=== PATIENT | male | born 1950 | race Caucasian/White ===

== ENCOUNTER 2021-08-22 11:20 | Outpatient (CLI) | payer SELFPAY ==
[2021-08-22 12:06] LABS: Alanine Aminotransferase 14 U/L (0-41); Albumin Level 4.2 g/dL (3.5-5.2); Alkaline Phosphatase 79 IU/L (40-130); Anion Gap 18.4 (5-19); Aspartate Amino Transferase 12 U/L (0-40); Blood Urea Nitrogen 11 mg/dL (8-23); Calcium 8.8 mg/dL (8.5-10.5); Carbon Dioxide 22 mmol/L (22-29); Chloride 99 mmol/L (98-107); Chol HDL Ratio 3.52 mg/dL (1.0-5.00); Cholesterol 169 mg/dL (0-200); Globulin 2.1 g/dL (1.3-4.6); Glomerular Filtration Rate 112.1 mL/min (90-130); Glucose 106 mg/dL (65-115); HDL Cholesterol 48 mg/dL (60-100); LDL Cholesterol Calculated 104 mg/dL (50-129); LDL HDL Ratio 2.17 RATIO (0.00-3.22); Osmolality Calculated 280 mOsm/kg (285-295); Potassium 4.4 mmol/L (3.5-5.1); Sodium 135 mmol/L (136-145); Total Bilirubin 0.8 mg/dL (0.15-1.2); Total Protein 6.3 g/dL (6.6-8.7); Triglycerides 83 mg/dL (0-150)
== END 2021-08-22 11:21 | disposition home or self-care (01) ==
LOC: LAB 11:29
PROVIDERS: Visit Provider Internal Medicine Interventional Cardiology
DX: E78.2 Mixed hyperlipidemia (principal); I10 Essential (primary) hypertension
CPT/HCPCS: 80053; 80061

== ENCOUNTER → 2024-09-09 08:57 | Outpatient (BNVA) | payer MEDICARE, OTHER, SELFPAY | PROVIDERS: Visit Provider Student in an Organized Health Care Education/Training Program | DX: R03.0 Elevated blood-pressure reading, without diagnosis of hypertension (principal); Z12.11 Encounter for screening for malignant neoplasm of colon; D37.4 Neoplasm of uncertain behavior of colon | CPT/HCPCS: 99204 ==

== ENCOUNTER 2024-09-29 05:47 | Day surgery (SDC) | payer MEDICARE, OTHER, SELFPAY ==
[2024-09-29] VITALS (11 sets, daily range): BP systolic 142–180; BP diastolic 71–98; PULSE 58–67; RESP 16–20; TEMP 36.2–36.5; O2SAT 95–98; BMI 29.2
--- NOTE | 2024-09-29 06:21 | P.ANESASSM_ITS ---
Pre-Anesthetic Assessment Height/Weight: Height 5 ft 10 in Weight 204 lb Temp Pulse Resp BP Pulse Ox O2 Del Method 97.7 F 67 18 180/95 98 Room Air 09/29/24 06:03 09/29/24 06:03 09/29/24 06:03 09/29/24 06:03 09/29/24 06:03 09/29/24 06:03 Preop Diagnosis: Lipoma Operation Date: 09/29/24 07:00 Proposed Procedures p excision of [place] back [address], D17.1(Not Applicable) - Francisco J Stover MD Was Beta Geeta taken within 24 hours: N/A Was Clonidine taken within 24 hours: N/A Last intake: Intake Last Liquid Date 09/28/24 Last Liquid Time 18:00 Last Solid Date 09/28/24 Last Solid Time 18:00 Social No alcohol and No tobacco Exam alert, oriented x 3, clear to auscultation bilaterally and regular rate & rhythm Airway Submandibular: within normal limits Cervical ROM: within normal limits Mallampati: Class II Dentition: full Comments: Comments: Poor dentition, denies any loose Anesthetic Plan ASA status: 3 Anesthesia: General Other: No prior issues with anesthesia NPO since yesterday History of hypertension on carvedilol and lisinopril. Preop BP 180/95 Denies any pulmonary issues METs greater than 4 BMP pending Plan for general anesthesia Medications/Allergies Home Medications Medication Instructions Recorded Confirmed Last Taken Type carvedilol 6.25 mg tablet 3.25 mg PO BID 09/09/24 09/29/24 09/29/24 History lisinopril 40 mg tablet 40 mg PO ONCE 09/09/24 09/29/24 09/28/24 History Allergies Allergy/AdvReac Type Severity Reaction Status Date / Time gluten Allergy bloating, Verified 09/29/24 06:01 itching, dizzy dairy Allergy bloating, Uncoded 09/29/24 06:01 itching, dizy [facility] Anesthesia Family History (Updated 09/09/24 @ 09:09 by MICHELLE Green) Father Heart attack Mother Cancer pancreatic Social History (Updated 09/09/24 @ 09:09 by MICHELLE Green) Smoking and tobacco/nicotine status: never used tobacco/nicotine Alcohol intake: never Data Anesthesia 09/29/24 06:25 Cardiac Studies: 2 No Data to Display
[2024-09-29] MEDS: sodium chloride 0.9% 1,000 ML 30 ML IV (06:23)
[2024-09-29 06:55] LABS: Alanine Aminotransferase 12 U/L (0-41); Albumin Level 4.2 g/dL (3.5-5.2); Alkaline Phosphatase 103 U/L (40-130); Anion Gap 16.1 (5-19); Aspartate Amino Transferase 12 U/L (0-40); Blood Urea Nitrogen 13 mg/dL (8-23); Calcium 8.9 mg/dL (8.5-10.5); Carbon Dioxide 24 mmol/L (22-29); Chloride 100 mmol/L (98-107); Creatinine Clr Calc Pharmacy 96.8075; Globulin 2.2 g/dL (1.3-4.6); Glucose 158 mg/dL (65-115); Osmolality Calculated 285 mOsm/kg (285-295); Potassium 4.1 mmol/L (3.5-5.1); Sodium 136 mmol/L (136-145); Total Bilirubin 0.6 mg/dL (0.15-1.2); Total Protein 6.4 g/dL (6.6-8.7)
--- NOTE | 2024-09-29 07:03 | W.PM.OPSUD ---
Surgery/Procedure H&P Update DATE OF PROCEDURE: September 29, 2024 DATE H&P PERFORMED: 09/09/23 H&P UPDATE INFORMATION: I have reviewed H&P completed within last 30 days, I have examined patient prior to procedure and No changes to prior documentation PREOP DIAGNOSIS: Lipoma PLANNED PROCEDURE: Operation Date: 09/29/24 07:00 Proposed Procedures p excision of [place] on back [address], D17.1(Not Applicable) - Francisco J Stover MD
[2024-09-29] MEDS: ceFAZolin 2,000 mg SDV 2000 MG IVP (07:04)
[2024-09-29] MEDS: neomycin-poly-bacitracin oint 28 gm 1 APPLIC TOPICAL (07:57)
[2024-09-29] MEDS: lidocaine-epi 1% PF 1:200,000 30 mL SDV INJECTION (07:58)
--- NOTE | 2024-09-29 08:06 | PM.OP ---
Operative Report Date of procedure: September 29, 2024 Pre-op diagnosis: Lipoma Post-op diagnosis: same Post-op diagnosis: 5 x 4 cm lipoma Post-op findings: 5 x 4 cm lipoma Procedure done: Dorsal lipoma excision Implants: N/A Specimens removed/disposition: Lipoma sent to pathology Pathology: Lipoma Surgeon: Francisco J Stover MD Enterprise Software Developer: N/A Anesthesia: General Estimated blood loss (mL): 5 Complications: N/A Findings: 5 x 4 cm lipoma. Excised the capsule. Closed wound in multiple layers. Condition: stable Disposition: same day Brief History: 73-year-old male who presented with a soft tissue mass most consistent with a lipoma of the dorsum. Discussed risk and benefits and patient agreed to proceed with soft tissue mass excision. Procedure: Patient was brought into the operative room. Preoperative Ancef was administered. SCDs were working. General anesthesia was induced on the stretcher. Gel rolls were placed at the chest and hip level on the operating room table. Once the endotracheal tube was secured, the patient was then transferred to the operating room table prone. Arms were properly padded and secured. The dorsum was prepped and draped in the usual sterile fashion. A 5 cm incision was carried out over the soft tissue mass. Electrocautery was used to dissect out the lipoma. It was excised with the capsule intact. Specimen was passed off and sent to pathology. Adequate hemostasis was achieved using electrocautery. Lana's was closed using running 3-0 Vicryl. The deep dermal layer was closed using running 2-0 Vicryl. Epidermis was closed using interrupted vertical mattress sutures using 2-0 nylon. Triple antibiotic ointment was applied. An island dressing was also applied. The patient woke up from anesthesia without any complications
--- NOTE | 2024-09-29 09:25 | ANE.PACU2 ---
Inpatient post-anesthesia follow up: Airway intact: Yes Vital signs: Temperature 97.6 F Pulse Rate 62 Respiratory Rate 17 Blood Pressure 153/98 Pulse Oximetry 96 Oxygen Delivery Me thod Room Air Oxygen Flow Rate Fraction of Inspir ed Oxygen Hydration adequate: Yes Nausea and vomiting: No Pain level: 1 Mental status: Baseline
== END 2024-09-29 09:25 | disposition home or self-care (01) ==
PROVIDERS: Student in an Organized Health Care Education/Training Program; PCP Family Medicine; Visit Provider Student in an Organized Health Care Education/Training Program
PROC: (CPT 21933; principal; 2024-09-29 07:00)
DX: D17.1 Benign lipomatous neoplasm of skin and subcutaneous tissue of trunk (principal)
CPT/HCPCS: 21933; 80053; 88304; J0690; J1100; J2250; J2405; J2704; J2710; J3010; J3490; J7030

== ENCOUNTER → 2024-10-07 08:57 | Outpatient (BNVA) | payer MEDICARE, OTHER, SELFPAY | PROVIDERS: PCP Family Medicine; Visit Provider Student in an Organized Health Care Education/Training Program | DX: Z98.890 Other specified postprocedural states (principal) | CPT/HCPCS: 99024 ==

== ENCOUNTER → 2024-10-21 10:59 | Outpatient (BNVA) | payer MEDICARE, OTHER, SELFPAY | PROVIDERS: PCP Family Medicine; Visit Provider Student in an Organized Health Care Education/Training Program | DX: R03.0 Elevated blood-pressure reading, without diagnosis of hypertension (principal); Z98.890 Other specified postprocedural states | CPT/HCPCS: 99024 ==

== ENCOUNTER 2024-11-30 10:52 | Day surgery (SDC) | payer MEDICARE, SELFPAY ==
[2024-11-30 11:08] VITALS: BMI 28.7
[2024-11-30 11:12] VITALS: BP 152/88; PULSE 71; RESP 18; TEMP 36.5; O2SAT 96
--- NOTE | 2024-11-30 11:20 | W.PM.OPSFHP ---
Same Day Surgery H&P Indication for Procedure/HPI DATE OF PROCEDURE: November 30, 2024 CHIEF COMPLAINT/INDICATIONFOR SURGICAL PROCEDURE: screening colonoscopy PREOP DIAGNOSIS: screening colonoscopy PLANNED PROCEDURE: Operation Date: 11/30/24 12:15 Proposed Procedures p Colonoscopy 00689 G0121 Z12.11(Not Applicable) - Francisco J Stover MD Medications/Allergies* Home Medications ?Medication ?Instructions ?Recorded ?Confirmed ?Type carvedilol 6.25 mg tablet 6.25 mg PO BID 09/09/24 11/30/24 History lisinopril 40 mg tablet 40 mg PO BEDTIME 09/09/24 11/29/24 History Allergies/Adverse Reactions Allergy/AdvReac Type Severity Reaction Status Date / Time gluten Allergy bloating, Verified 11/30/24 11:05 itching, dizzy dairy Allergy bloating, Uncoded 11/30/24 11:05 itching, dizy Pertinent History/Comorbid Conditions* Family History (Updated 09/09/24 @ 09:09 by MICHELLE Green) Heart attack Father Cancer Mother pancreatic Social History Smoking and tobacco/nicotine status: never used tobacco/nicotine Alcohol intake: never Pertinent Exam Findings alert, oriented x 3, clear to auscultation bilaterally, regular rate & rhythm and procedure specific exam findings Abdomen soft, nt, ,nd Pertinent Data No family history of colon cancer. No hematochezia, no melena, no weight loss. Recommendations Surgery/Procedure today Other Plans: I have explained the risks and benefits of a screening colonoscopy and the patient agrees to proceed. Patient is average for colon cancer. Coding Level of Care Code Acute Code for [facility]
[2024-11-30] MEDS: sodium chloride 0.9% 1,000 ML 30 ML IV (11:22)
--- NOTE | 2024-11-30 11:32 | ANES.PREANE2 ---
Pre-Anesthetic Assessment Height/Weight: Height 1.78 m Weight 90.718 kg Temp Pulse Resp BP Pulse Ox O2 Del Method 97.7 F 71 18 152/88 96 Room Air 11/30/24 11:12 11/30/24 11:12 11/30/24 11:12 11/30/24 11:12 11/30/24 11:12 11/30/24 11:12 Preop Diagnosis: screening colonoscopy Operation Date: 11/30/24 12:15 Proposed Procedures p Colonoscopy 20723 G0121 Z12.11(Not Applicable) - Francisco J Stover MD Familial anesthetic complications: none Was Beta Geeta taken within 24 hours: Yes Was Clonidine taken within 24 hours: N/A Last intake: Intake Last Liquid Date 11/29/24 Last Liquid Time 22:00 Last Solid Date 11/28/24 Last Solid Time 19:00 Social No alcohol and No tobacco Exam alert, oriented x 3, clear to auscultation bilaterally and regular rate & rhythm Airway Submandibular: within normal limits Cervical ROM: within normal limits Mallampati: Class III Dentition: full History/ROS No significant history except as noted and No significant complaints Pulmonary None reported CV/HEM Hypertension None reported Hepatic None reported GI None reported Metabolic None reported Musc/skel None reported Neuropsych None reported Anesthetic Plan ASA status: 3 Anesthesia: MAC Risk of > 500 ml blood loss (7ml/kg in children): No Medications/Allergies Home Medications ?Medication ?Instructions ?Recorded ?Confirmed ?Last Taken ?Type carvedilol 6.25 mg tablet 6.25 mg PO BID 09/09/24 11/30/24 11/30/24 History lisinopril 40 mg tablet 40 mg PO BEDTIME 09/09/24 11/29/24 11/29/24 History Allergies Allergy/AdvReac Type Severity Reaction Status Date / Time gluten Allergy bloating, Verified 11/30/24 11:05 itching, dizzy dairy Allergy bloating, Uncoded 11/30/24 11:05 itching, dizy Current Medications Generic Name Dose Route Start Last Admin Trade Name Freq PRN Reason Stop Dose Admin Sodium Chloride 1,000 mls @ 30 mls/hr 11/30/24 11:15 11/30/24 11:22 Sodium Chloride 0.9% IV 30 mls/hr .Q24H JUAN Administration PFSH Anesthesia Family History Father Heart attack Mother Cancer pancreatic Social History Smoking and tobacco/nicotine status: never used tobacco/nicotine Alcohol intake: never Data Anesthesia Cardiac Studies: No Data to Display
[2024-11-30 12:35] VITALS: BP 88/52; PULSE 67; RESP 18; TEMP 36.4; O2SAT 95
[2024-11-30 12:41] VITALS: BP 99/60; PULSE 62; RESP 18; O2SAT 94
[2024-11-30 12:49] VITALS: BP 127/76; PULSE 62; RESP 18; O2SAT 95
--- NOTE | 2024-11-30 13:05 | ANE.PACU2 ---
Inpatient post-anesthesia follow up: Airway intact: Yes Vital signs: Temperature 97.6 F Pulse Rate 62 Respiratory Rate 18 Blood Pressure 127/76 Pulse Oximetry 95 Oxygen Delivery Me thod Room Air Oxygen Flow Rate Fraction of Inspir ed Oxygen Hydration adequate: Yes Nausea and vomiting: No Pain level: 1 Mental status: Baseline
== END 2024-11-30 13:05 | disposition home or self-care (01) ==
PROVIDERS: PCP Family Medicine; Visit Provider Student in an Organized Health Care Education/Training Program
PROC: 0DJD8ZZ Inspection of Lower Intestinal Tract, Via Natural or Artificial Opening Endoscopic (ICD-10-PCS; CPT 45378; principal; 2024-11-30 12:15)
DX: Z12.11 Encounter for screening for malignant neoplasm of colon (principal); D12.5 Benign neoplasm of sigmoid colon; D12.8 Benign neoplasm of rectum; I10 Essential (primary) hypertension; Z79.899 Other long term (current) drug therapy; Z80.0 Family history of malignant neoplasm of digestive organs
CPT/HCPCS: 45380; 45385; 88305; J7030

== ENCOUNTER → 2024-12-13 14:59 | Outpatient (BNVA) | payer MEDICARE, SELFPAY | PROVIDERS: PCP Family Medicine; Visit Provider Student in an Organized Health Care Education/Training Program | DX: Z09 Encounter for follow-up examination after completed treatment for conditions other than malignant neoplasm (principal) | CPT/HCPCS: 99213 ==

== ENCOUNTER → 2025-03-04 12:24 | Outpatient (BNVA) | payer MEDICARE, OTHER, SELFPAY | PROVIDERS: PCP Family Medicine; Visit Provider Nurse Practitioner | DX: M75.32 Calcific tendinitis of left shoulder (principal); Z98.890 Other specified postprocedural states; V89.2XXA Person injured in unspecified motor-vehicle accident, traffic, initial encounter | CPT/HCPCS: 73030; 99204 ==

== ENCOUNTER 2025-03-29 07:46 | Outpatient (CLI) | payer MEDICARE, OTHER, SELFPAY ==
--- NOTE | 2025-03-29 07:56 | MR_ITS ---
WS: [id number] EXAMINATION: MR shoulder LT arthrogram ORDER DATE: 03/29/2025 7:56 AM COMPARISON: LEFT HISTORY: pain in left shoulder TECHNIQUE: Axial T2 STAR, coronal proton density fat sat, sagittal T2 fat sat, sagittal proton density fat sat, axial proton density fat sat, coronal T2 fat sat, and coronal T1 performed. Arthrogram imaging FINDINGS: Advanced arthritis AC joint with mild downsloping acromion. Subacromial spurring. Prior rotator cuff repair. Fluid and edema at the AC joint. Subchondral cystic change involving the greater tuberosity. Advanced degenerative narrowing of the glenohumeral articulation. Some imaging degraded due to susceptibility artifact from rotator cuff anchors. Biceps tendon appears intact within the bicipital groove. Diffuse increased T2 signal normality involving the intra-articular biceps tendon compatible with tendinopathy. Small interstitial tears involving the rotator cuff repair involving the supraspinatus and infraspinatus distally. A few small bursal surface tears involving both the supraspinatus and infraspinatus. Tiny rim rent tear with dissecting contrast to the bursal surface involving the supraspinatus. No tendon retraction. Subscapularis tendon appears intact. Glenoid labrum appears grossly intact. Middle glenohumeral ligament appears intact. Normal teres minor. MR/MR shoulder LT wo/w con [id number] IMPRESSION:a 1. Prior rotator cuff repair. 2. Tiny interstitial tears involving the supraspinatus and infraspinatus with a distal supraspinatus insertion tear. 3. Additional tiny full-thickness tear involving the supraspinatus distally wi th dissecting contrast to the bursal surface. No tendon retraction. 4. Teres minor and subscapularis tendons appear intact. 5. Medial subluxation of the biceps tendon along the proximal bicipital groove . 6. Intra-articular biceps tendon appears intact with diffuse tendinopathy. 7. Biceps labral anchor appears intact. 8. Degenerative fraying of the glenoid labrum with no acute appearing tears.
--- NOTE | 2025-03-29 08:00 | IR_ITS ---
WS: [id number] SHOULDER ARTHROGRAM LEFT Fluoroscopic guided left shoulder arthrogram CLINICAL INFORMATION: left shoulder pain PROCEDURE: The procedure including risks, benefits and complications were discussed with the patient, who agreed to proceed. Using sterile technique, the patient was prepped and draped in the usual sterile fashion. After 1% lidocaine injection using fluoroscopic guidance, a 22-gauge spinal needle was advanced into the glenohumeral joint. Approximately 13 ml of a solution containing 15 ml normal saline, 5 ml Omnipaque 240, and 0.1 ml gadolinium was administered. No immediate complications. FLUOROSCOPY TIME: 1min [id number] # of spot films: 5 IR/IR arthrogram shoulderLT [id number] IMPRESSION: Uncomplicated fluoroscopic-guided left shoulder arthrogram. MRI to follow.
[2025-03-29] MEDS: gadobenate dimeglumine 20 mL vial 3 ML IV (10:38)
[2025-03-29] MEDS: iohexol 240 mg/mL 50 mL Btl 20 ML INTRA-ARTI (10:42)
== END 2025-03-29 07:47 | disposition home or self-care (01) ==
LOC: RAD 07:48
PROVIDERS: PCP Family Medicine; Visit Provider Nurse Practitioner
DX: M75.122 Complete rotator cuff tear or rupture of left shoulder, not specified as traumatic (principal); Z98.890 Other specified postprocedural states; M67.814 Other specified disorders of tendon, left shoulder; M75.82 Other shoulder lesions, left shoulder; S43.082A Other subluxation of left shoulder joint, initial encounter; X58.XXXA Exposure to other specified factors, initial encounter
CPT/HCPCS: 23350; 73223; 77002; J9999

== ENCOUNTER 2025-04-15 12:50 | Outpatient (CLI) | payer MEDICARE, SELFPAY | END 2025-04-15 12:51 | disposition home or self-care (01) | PROVIDERS: PCP Family Medicine; Visit Provider Nurse Practitioner | DX: M25.512 Pain in left shoulder (principal) | CPT/HCPCS: 80053; 81001; 85025 ==

== ENCOUNTER → 2025-04-26 09:10 | Outpatient (BNVA) | payer MEDICARE, SELFPAY | PROVIDERS: PCP Family Medicine; Visit Provider Family Medicine | DX: Z01.818 Encounter for other preprocedural examination (principal) | CPT/HCPCS: 93005 ==

== ENCOUNTER 2025-05-10 09:46 | Day surgery (SDC) | payer MEDICARE, OTHER, SELFPAY ==
[2025-05-10] VITALS (11 sets, daily range): BP systolic 142–167; BP diastolic 76–93; PULSE 67–77; RESP 10–18; TEMP 36.2–36.5; O2SAT 93–97; BMI 27.9
[2025-05-10] MEDS: acetaminophen 1,000 MG/100 ML PIGGYBACK 400 MG IV (10:35)
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
--- NOTE | 2025-05-10 10:37 | P.HPUD_ITS ---
Surgery/Procedure H&P Update DATE OF PROCEDURE: May 10, 2025 DATE H&P PERFORMED: 04/26/25 H&P UPDATE INFORMATION: I have reviewed H&P completed within last 30 days, I have examined patient prior to procedure, No changes to prior documentation, H&P is in [facility] EMR on date indicated and Risks and benefits of the procedure reviewed PREOP DIAGNOSIS: Left shoulder pain after trauma with history of left rotator cuff repair an PRIMARY INDICATION FOR PROCEDURE: MRI arthrogram of the patient's left shoulder was obtained at [facility] on March 29, 2025. The images were reviewed and report was dictated by Dr. Valentin Lira MD. Impression: 1. Prior rotator cuff repair. 2. Tiny interstitial tears involving the supraspinatus and infraspinatus with a distal supraspinatus insertion tear. 3. Additional tiny full-thickness tear involving the supraspinatus distally with dissecting contrast of the bursal surface. No tendon retraction. 4. Teres minor and subscapularis tendons appear intact. 5. Medial subluxation of the biceps tendon along the proximal bicipital groove. 6. Intra-articular biceps tendon appears to be intact with diffuse tendinopathy. 7. Biceps labral anchor appears intact. 8. Degenerative fraying of the glenoid labrum and no acute appearing tears. PLANNED PROCEDURE: Operation Date: 05/10/25 11:35 Proposed Procedures p LEFT Shoulder Debridement(Left) - Niurka Alexander MD s LEFT Distal Clavicle Resection(Left) - Niurka Alexander MD s POSSIBLE LEFT Rotator Cuff Repair Shoulder(Left) - Niurka Alexander MD Related Problem List Diagnoses 1. Calcific tendonitis of left shoulder: 2. Pain of left shoulder after trauma: 3. History of repair of left rotator cuff:
--- NOTE | 2025-05-10 10:44 | SUR.PREOP ---
Left interscalene block completed in OPS by Dr Pérez using 20ml 0.5% Ropivicaine and 4mg decadron. Patient tolerated well
[2025-05-10] MEDS: ceFAZolin 2,000 mg SDV 2000 MG IVP (11:05)
[2025-05-10] MEDS: ceFAZolin 1,000 mg SDV 1000 MG IRRIGATION (11:44)
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
[2025-05-10] MEDS: fentaNYL 50 mcg/mL INJ 2mL IVP (13:15)
--- NOTE | 2025-05-10 14:20 | ANE.PACU2 ---
Inpatient post-anesthesia follow up: Airway intact: Yes Vital signs: Temperature 97.5 F Pulse Rate 71 Respiratory Rate 18 Blood Pressure 158/83 Pulse Oximetry 94 Oxygen Delivery Me thod Room Air Oxygen Flow Rate Fraction of Inspir ed Oxygen Hydration adequate: Yes Nausea and vomiting: No Pain level: 1 Mental status: Baseline
== END 2025-05-10 14:20 | disposition home or self-care (01) ==
PROVIDERS: PCP Family Medicine; Visit Provider Specialist
PROC: (CPT 23412; principal; 2025-05-10 11:15)
PROC: (CPT 23120; 2025-05-10 11:15)
PROC: (CPT 23412; 2025-05-10 11:15)
DX: M75.112 Incomplete rotator cuff tear or rupture of left shoulder, not specified as traumatic (principal); M75.42 Impingement syndrome of left shoulder; M19.012 Primary osteoarthritis, left shoulder; I10 Essential (primary) hypertension
CPT/HCPCS: 23412; 23130; J0131; J0690; J1100; J1200; J2405; J2704; J2795; J3010; J3490; J7030; J9999

== ENCOUNTER → 2025-05-23 15:02 | Outpatient (BNVA) | payer MEDICARE, SELFPAY | PROVIDERS: PCP Family Medicine; Visit Provider Nurse Practitioner | DX: Z98.890 Other specified postprocedural states (principal) | CPT/HCPCS: 99024 ==

== ENCOUNTER → 2025-06-13 13:23 | Outpatient (BNVA) | payer MEDICARE, SELFPAY | PROVIDERS: PCP Family Medicine; Visit Provider Nurse Practitioner | DX: Z98.890 Other specified postprocedural states (principal); M25.512 Pain in left shoulder; V89.2XXA Person injured in unspecified motor-vehicle accident, traffic, initial encounter | CPT/HCPCS: 99024 ==

== ENCOUNTER 2025-06-26 21:15 | Emergency (ER) | payer MEDICARE, OTHER, SELFPAY ==
--- OUTSIDE RECORDS SUMMARY | 2008-12-30 19:00 | XMS_ITS | Continuity of Care Document ---
Author Organization [facility] Address [address] [place] [address] Care Team Providers Care Keypuncher Name Role Phone Moose White MD Unavailable Unavailable Procedures Procedure Date Ecg-routine 12 Lead; Intrpt & Advance Directives Directive Yes / No Effective Date File Name No Information Encounters Encounter Description Practice Location Reason(s) For Visit Diagnoses Date Provider Providers Copied on [facility]counter [facility], [address] [place] [address], [id number], [facility] No Information 9 Cindy Virk. [address] [facility], [address], [facility] [address], [place], [id number], [place]. tel:[phone] Referring Provider: Juan Alberto Kelly MD I, [address] [place] [address], [id number]. tel:[phone] Family History Family Member Type Diagnosis Age At Onset No Information Payers Payer name Insurance type Covered libertarian ID Authoriza tialyse(s) [employer] CI [id number] Social History Type Description Quantity Date Captured Comments Sex Male Smoking Status No Information Chief Complaint And Reason For Visit No Information Reason For Referral Reason For Referral No Information History Of Present Illness Encounter Date Complaint History Of Prese nt Illness No Information Functional Status Date Functional Assessmen t No Information Instructions Date Instruction Additional Infor mation No Information Assessments Type Assessment Date No Information Patient Care Teams Name Effective Dates (start - stop) Status Members No Information
--- OUTSIDE RECORDS SUMMARY | 2024-08-27 09:30 | XMS_ITS ---
Author Organization [facility] Address [address] [place] [address] Care Team Providers Care Bandoleer Packer Name Role Phone NONE, NO PCP Primary Care Provider UnavailRAFAEL Joseph Unavailable [phone] YASEMIN TRUONG Unavailable Unavailable GERMAIN HORTON Unavailable [phone] Encounters Encounter Location Date Provider Diagnosis [facility] [address] [facility] [place] [address] 08/27/2024 GERMAIN HORTON Plan Of Treatment No Information Progress Notes * JANES GARCIAODOB:1950 (74 yo M)Acc No.[id number]:08/27/2024 Progress Notes Patient: Fermin JOSEPH THAD Provider: Paul Horton MD :1950 A ge:73 Y S ex:Male Date:08/27/2024 Address:[address] [id number] Pcp:NO PCP NONE Subjective: * Chief Complaints: * * Medical History: Objective: * Vitals: Assessment: Plan: * Treatment: * Images: Billing Information: * Visit Code: * Procedure Codes: * Electronic signature of GERMAIN HORTON MD on 06/26/2025 at 09:24 PM CDT Sign off status: Pending * Provider: Paul Horton MD Date: 1 10/28/2023 Generated for Ping ashraf/Justin/Kirby on: 1 09:24 PM CDT
--- OUTSIDE RECORDS SUMMARY | 2025-06-26 21:24 | XMS_ITS | Data Portability ---
Author Organization [facility] James Joiner, [facility] Address [address] [place] [id number] Assessment No assessment recorded. Plan of Treatment Reminders Order Date Submit Date Provider Last Modified By Organization Details Last Modified Time Details Appointments None recorded. Lab None recorded. Referral None recorded. Procedures None recorded. Surgeries None recorded. Imaging None recorded. Medication Orders triamcinolo ne acetonide 0.1 % topical cream 2022 023 [id number], [address], [place], [place], [id number], 3 15:10:22 Patient TargetsNo targets recorded. Patient InstructionsNo instructions recorded. Reason for Referral None Reported. Medical Equipment None Reported. Allergies Allergen ID Allergen Name Allergen Category Reaction Reaction Severity Criticality Documentation Date Start Date Code Code System Note Provider Name and Address Organization Details Recorded Time 50395 wheat gluten extract food Not available Not available Not available 07/09/2023 17395 81 RxNorm [facility] 14:42:32 Medications Name Sig Start Date Stop Date Status Note LastModified by Organization Details LastModified Time triamcinolone acetonide 0.1 % topical cream APPLY A THIN LAYER TO THE AFFECTED AREA(S) BY TOPICAL ROUTE 2 TIMES PER DAY 2022 active Not Available Not Available Not Avai lable Vitals Date Recorded Body height Body mass index (BMI) Body weight Oxygen saturation Oxygen saturation in Arterial blood by Pulse oximetry Heart rate Body temperature Systolic And Diastolic Provider Name and Address Organization Details Last Updated DateTime 3 177.8 cm 29.8 kg/m2 87249.2 1 g 97 % 97 % 69 /min 97.8 [degF] 160/71 mm[Hg] SALEEM LLOYD [facility], LGeorgi 3 14:41:59 Social History None recorded. Functional Status None recorded. Mental Status None recorded. Family History Nothing Reported. Medical History No medical history recorded. Past Encounters Encounter ID Performer Location Encounter Start Date Encounter Closed Date Diagnosis/Indication Diagnosis SNOMED-CT Code Diagnosis ICD10 Code Diagnosis IMO Codes Diagnosis Note [id number] SHELLEY BADILLO BANNER ([facility]) [address] [place] [address] 07/09/2023 13:53:44 07/09/2023 16:37:51 Bruising symptom 928259712 R23.[address] Archibald. Appears to be a bruise. No evidence of steel hanger y issues. Patient will continue to monitor and return to walk in for a follow up in 2 weeks. Patient denies pain but reports some itching. If pain develops or bruising appears to spread, should be re-evaluat ed sooner. Patient is agreeable to plan of care. Itching of skin 90514665 0 L29.9 Can use triamcinol one BID for itching. Health Concerns Section Related Observation LastModified by Organization Detai ls LastModified Time None Recorded Concern Status LastModified by Organization Details LastModified Time None Recorded Advance Directives Directive None Recorded Payers Insurance Date Sequence Insurance Name Policy Number Policy Rivera Covered Member ID Rivera Member ID Guarantor Name 07/09/2023 1 MEDICARE [place]: [facility] Danna Mcclelland [id number] Danna Vines 07/16/2023 2 [employer] (MEDICARE SUPPLEMENT) Danna Mcclelland [id number] Danna Vines 07/09/2023 1 [place]: S Danna Vines [id number] Danna Vines 07/15/2023 [facility] MEDIC[facility]-[place] - PART A - [facility] (MEDICARE) Danna Vines [id number] Danna Vines Notes Date Note Type Note Provider Name and Address Organization Details Recorded Time 07/09/2023 text/html General Rash/Ski n LesionReported by PatientHPIFor quality, patient reportsitchybut reportsnot painful(bruising). For location, patient reportslegs. For severity, patient reportsmoderate. For duration, patient reportshas noted for <1 week. For onset/timing, patient reportsabrupt onset. For associated symptoms, patient reportsno fever,no cold symptoms,no nausea,no vomiting, andno diarrhea.ROS as noted in the HPI Patient is a 72 year old male who presents to the walk in clinic today for skin problems. Patient presents to the clinic today with a complaint of a bruise to posterior right thigh, reports mild itching. Denies pain or fever. Noticed the bruise yesterday. Denies any injury. BROCK BADILLO-Yony [address] [place], [address], [facility] 07/10/2023 15:54:45
--- OUTSIDE RECORDS SUMMARY | 2025-06-26 21:24 | XMS_ITS | Patient Health Record ---
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 Name Role Phone NONE, NO PCP Primary Care Provider UnavailRAFAEL Joseph Unavailable [phone] YASEMIN TRUONG Unavailable Unavailable GERMAIN DELA CRUZ Unavailable [phone] Allergies No Known Allergies Reason For Referral No Information Medications Medication SIG (Take, Route, Frequency, Duration) Notes Start Date End Date Status Rosuvastatin Calcium 10 MG take 1 tablet by mouth every day Orally Once a day; Duration: 90 days Active hydroCHLOROthiazide 25 MG take 1 tablet by mouth every day in the morning Orally Once a day; Duration: 90 days Active Lisinopril 40 MG 1 tablet Orally Once a day; Duration: 30 days Active Carvedilol 6.25 MG 1 tablet Orally Twic e a day; Duration: 30 days Active amLODIPine Besylate 5 MG 1 tablet Orally Once a day; Duration: 90 days 11/14/2020 Not-Taking Social History Tobacco Use: Social History Observation Description Date Details (start date - stop date) Never Smoker NA - NA TOBACCO USE- Question Answer Notes Are you a: never Tobacco user Section Notes: No ETOH or tobacco. 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) Active confirmed Problem Essential hypertension (60438199) Benign essential HTN (I10) Active confirmed Problem Bilateral atherosclerosis of arteries of lower limbs (disorder) (50195471351313557 ) Atherosclerosis of artery of both lower extremities (I70.203) Active confirmed Problem Abdominal aortic aneurysm without rupture (disorder) (39015162) Abdominal aortic aneurysm, without rupture, unspecified (I71.40) Active confirmed Encounters Encounter Location Date Provider Diagnosis [facility] [address] [place] [address] 08/04/2024 RAFAEL WELCH Benign essential HTN I10 [facility] [address] [place] [address] 08/04/2024 RAFAEL WELCH Assessments Encounter Date Diagnosis (ICD Code) Assessment Notes Treatment Notes Treatment Clinical Notes Section Notes 08/04/2024 Benign essential HTN (ICD-10 - I10) Plan Of Treatment Pending Test Test Name Order Date COMPREHENSIVE METABOLIC PANEL 05/31/2021 LIPID PANEL WITH REFLEX TO DIRECT LDL Future Test Test Name Order Date COMPREHENSIVE METABOLIC PANEL 08/12/2023 LIPID PANEL WITH REFLEX TO DIRECT LDL CBC (INCLUDES DIFF/PLT) 08/12/2023 ABD AORTA ANEURYSM SCREEN-MEDICARE Insurance Providers Payer Name Payer Address Payer Phone Subscriber Number Group Number Insured Name Patient Relationship to Insured Coverage Start Date Coverage End Date MEDICARE J6 [address] [place] [phone] [id number] [employer] BETTENCOURT Self - patient is the insured [employer] [facility] [address] [address] [place] [address] [id number] SHARON Bhakta JANESKary Self - patient is the insured Medical (General) History Medical History History ICD Code HTN 03/2013 labs: TC 146, HCL 57, TRG 53, LDL 78 echocardiogram March 2020-ejection fracti on 55-60% Lower extremity venous Doppl ers August 2020-there is right and left greater saphenous vein insufficiency. Right proximal medial tributary insufficiency Lower extremity arterial Dop pler August 2020-right ankle-brachial index 0.98, left ankle brachial index 1.0. No significant disease bilaterally Surgical History Surgery Date(Month/Year) left rotator cuff Hospitalization History Reason Date(Month/Year) hypertensive urgency. March 2020 Hypertensive urgency with negative stres s and normal echo 03/2013
[2025-06-26 21:34] VITALS: BP 185/89; PULSE 71; RESP 16; TEMP 36.7; O2SAT 97
--- NOTE | 2025-06-26 21:39 | ECG_ITS ---
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 Measurements Intervals [place] Rate: 72 P: 0 IN: 159 QRS: 51 QRSD: 88 T: 81 QT: 385 QTc: 423 Interpretive Statements SINUS RHYTHM Compared to ECG 04/26/2025 09:14:10 No significant changes Electronically Signed On 06-28-2025 19:46:20 CDT by Sheryl Ortiz M.D. [email or web address]
--- NOTE | 2025-06-26 21:48 | ECG_ITS ---
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 Measurements Intervals [place] Rate: 68 P: 15 TX: 174 QRS: 3 QRSD: 89 T: 62 QT: 400 QTc: 428 Interpretive Statements SINUS RHYTHM Compared to ECG 04/26/2025 09:14:10 No significant changes Electronically Signed On 06-28-2025 19:26:25 CDT by Sheryl Ortiz M.D. [email or web address] [id number]
--- NOTE | 2025-06-26 21:59 | CTR_ITS ---
PROCEDURE INFORMATION: Exam: CT Head Without Contrast Exam date and time: 06/26/2025 10:09 PM Age: 74 years old Clinical indication: C/O dizziness; Additional info: Vertigo TECHNIQUE: Imaging protocol: Computed tomography of the head without contrast. Radiation optimization: All CT scans at this facility use at least one of these dose optimization techniques: automated exposure control; mA and/or kV adjustment per patient size (includes targeted exams where dose is matched to clinical indication); or iterative reconstruction. COMPARISON: No relevant prior studies available. RADIATION DOSE METRICS: Total DLP (mGy-cm): 1155.08 FINDINGS: Brain: Age-related brain parenchymal atrophy. Areas of hypoattenuation in the periventricular and subcortical deep white matter likely on the basis of chronic microvascular ischemic changes. No acute intra cranial hemorrhage. No mass effect or midline shift. No definitive CT evidence of acute territorial infarction. Cerebral ventricles: No ventriculomegaly. Paranasal sinuses: Visualized sinuses are unremarkable. No fluid levels. Mastoid air cells: Visualized mastoid air cells are well aerated. Bones: Intact calvarium. Soft tissues: Unremarkable. CT/CT head wo con* [id number] IMPRESSION: No acute intracranial abnormality. Senescent changes.
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
[2025-06-26 22:18] VITALS: BP 165/92; PULSE 66; RESP 16; TEMP 36.7; O2SAT 96
[2025-06-26 22:29] LABS: Hematocrit 44.8 % (37-53); Hemoglobin 15.90 g/dL (11.27-16.99); Mean Corpuscular HGB Conc 35.5 g/dL (30-55); Mean Corpuscular Hemoglobin 30.3 pg (27-33); Mean Corpuscular Volume 85.3 fl (82-101); Nucleated Red Blood Cells % 0 %; Platelet Count 181 10^3/cmm (157-399); Red Blood Count 5.25 10^6/uL (3.85-5.65); White Blood Count 11.60 10^3/uL (3.29-11.43)
[2025-06-26 22:39] VITALS: BP 177/89; PULSE 68; O2SAT 95
[2025-06-26 23:25] LABS: Alanine Aminotransferase 11 U/L (0-41); Albumin Level 4.2 g/dL (3.5-5.2); Alkaline Phosphatase 97 U/L (40-130); Anion Gap 16.7 (5-19); Aspartate Amino Transferase 11 U/L (0-40); Blood Urea Nitrogen 15 mg/dL (8-23); Calcium 9.1 mg/dL (8.5-10.5); Carbon Dioxide 21 mmol/L (22-29); Chloride 98 mmol/L (98-107); Creatinine Clr Calc Pharmacy 93.4769; Globulin 2.2 g/dL (1.3-4.6); Glucose 160 mg/dL (65-115); NT Pro B Type Natriuretic Pept 1132 pg/mL (0-125); Osmolality Calculated 278 mOsm/kg (285-295); Potassium 3.7 mmol/L (3.5-5.1); Sodium 132 mmol/L (136-145); Total Protein 6.4 g/dL (6.6-8.7)
[2025-06-27 00:06] VITALS: BP 141/76; PULSE 57; O2SAT 94
--- NOTE | 2025-06-27 00:07 | PC.NURSE ---
Pt ambulated in hallway w/o any issues independently.
== END 2025-06-27 00:07 | disposition home or self-care (01) ==
PROVIDERS: Emergency Provider Emergency Medicine; PCP Family Medicine
DX: R42 Dizziness and giddiness (principal)
CPT/HCPCS: 36415; 70450; 80053; 83880; 85025; 93005; 99284; J8597

== ENCOUNTER → 2025-07-08 08:04 | Outpatient (BNVA) | payer MEDICARE, SELFPAY | PROVIDERS: PCP Family Medicine; Visit Provider Nurse Practitioner | DX: Z98.890 Other specified postprocedural states (principal) | CPT/HCPCS: 99024 ==

== ENCOUNTER 2025-07-21 14:09 | Outpatient (RCR) | payer MEDICARE, SELFPAY | END 2025-08-07 23:59 | disposition home or self-care (01) | LOC: SPT 14:09 | PROVIDERS: Visit Provider Nurse Practitioner | DX: M25.512 Pain in left shoulder (principal) | CPT/HCPCS: 97110; 97161 ==

== ENCOUNTER 2025-08-08 05:00 | Outpatient (RCR) | payer MEDICARE, SELFPAY | END 2025-08-29 10:29 | disposition home or self-care (01) | LOC: SPT 05:00 | PROVIDERS: Visit Provider Nurse Practitioner | DX: M25.512 Pain in left shoulder (principal) | CPT/HCPCS: 97110; 97530 ==

== ENCOUNTER → 2025-08-12 10:16 | Outpatient (BNVA) | payer MEDICARE, SELFPAY | PROVIDERS: Visit Provider Nurse Practitioner | DX: Z47.89 Encounter for other orthopedic aftercare (principal) | CPT/HCPCS: 73030; 99213 ==